=== PATIENT | female | born 1945 ===

== ENCOUNTER 2024-06-29 04:28 | Day surgery (SDC) | payer OTHER ==
[2024-06-28 16:30] VITALS: BMI 17.2
[2024-06-29] MEDS ORDERED: ONDANSETRON 4 MG/2 ML VIAL IVPUSH PRN (07:40)
[2024-06-29] MEDS ORDERED: oxyCODONE HCL 5 MG TABLET PO PRN ×2 (07:40)
[2024-06-29] MEDS ORDERED: LACTATED RINGERS SOLUTION 1,000 ML IV SCH (07:45)
[2024-06-29] MEDS ORDERED: MIDAZOLAM HCL 2 MG/2 ML SINGLE DOSE VIAL ONE (09:23)
[2024-06-29] MEDS ORDERED: PROPOFOL 20 ML ONE (09:23)
[2024-06-29] MEDS ORDERED: SEVOFLURANE 250 ML BTL ONE (09:23)
[2024-06-29] MEDS ORDERED: DEXAMETHASONE SOD PHOSPHATE 4 MG/1 ML VIAL ONE (09:24)
[2024-06-29] MEDS ORDERED: LIDOCAINE HCL/PF 2% SDV 5ML VIAL ONE (09:24)
[2024-06-29] MEDS ORDERED: ONDANSETRON 4 MG/2 ML VIAL ONE (09:24)
[2024-06-29] MEDS ORDERED: VASopressin 20 UNITS/ML VIAL IV ONE ×4 (09:31→09:38)
[2024-06-29] MEDS ORDERED: ceFAZolin SODIUM 1 GM VIAL ONE (10:07)
[2024-06-29] MEDS: ceFAZolin SODIUM 1 GM VIAL IVPB ONE (10:08)
[2024-06-29] MEDS ORDERED: IBUPROFEN 800 MG/8 ML IJ IVPB PRN (10:43)
[2024-06-29] MEDS: ACETAMINOPHEN 1000 MG/100 ML BAG IVPB PRN (11:51)
[2024-06-29] MEDS: ACETAMINOPHEN INJECTION 100 ML ONE (11:51)
[2024-06-29 15:58] VITALS: RESP 18
[2024-06-29] MEDS: DEXTROSE 5%-0.45% SALINE 1,000 ML IV SCH (18:13)
[2024-06-29] MEDS: CEFAZOLIN 1 GM in DEXTROSE 5%-WATER - 50 ML IVPB SCH (18:14)
[2024-06-30] MEDS: ACETAMINOPHEN 325 MG TABLET (FP) PO ONE (10:12)
[2024-06-30 10:18] VITALS: BP 161/60; PULSE 69; TEMP 97.9
[2024-06-30] MEDS: LISINOPRIL 10 MG TABLET PO SCH (10:24)
== END 2024-06-30 13:55 | disposition home or self-care (01) ==
LOC: JASU-SURG 04:28 → JASUSAT 04:28 → J7W 15:19 → JASUSAT 06-30 13:55
PROVIDERS: ATTEND Urology
PROC: 0TJB8ZZ Inspection of Bladder, Via Natural or Artificial Opening Endoscopic (ICD-10-PCS; 2024-06-29)
PROC: 0JQC0ZZ Repair Pelvic Region Subcutaneous Tissue and Fascia, Open Approach (ICD-10-PCS; principal; 2024-06-29 08:30)
DX: N81.10 Cystocele, unspecified (principal)
CPT/HCPCS: 88302-TC; 94760; J0131